=== PATIENT | male | born 1965 | race Caucasian/White ===

== ENCOUNTER 2017-09-27 11:54 | Day surgery (SDC) | payer BC ==
[2017-09-25 11:53] VITALS: BMI 21.2
[~2017-09-27 11:54] MED LIST: ALPRAZolam 0.25 MG TAB PO PRN; ALPRAZolam 0.5 MG TAB PO PRN; ASPIRIN 325 MG TAB PO STA; ATORVASTATIN 80 MG TAB PO STA; NITROGLYCERIN SL TABS 0.4 MG TAB SUBLINGUAL PRN; SODIUM CHLORIDE 0.9% 1,000 ML in EMPTY BAG 1 BAG IV ONE
[2017-09-27] MEDS ORDERED: fentaNYL (PF) 50 MCG/ML 2 ML AMP ONE (12:44)
[2017-09-27] MEDS ORDERED: LIDOCAINE 2% INJ 20 MG/ML (20 ML MDV) ONE (12:44)
[2017-09-27 12:45] LABS: Basophils # (A) 0.1 k/uL (0-0.2); Basophils % (A) 1 %; Eosinophils # (A) 0.2 k/uL (0-0.7); Eosinophils % (A) 3 %; HCT 46.2 % (39.0-53.0); HGB 15.8 gm/dL (13.0-17.5); Lymphocytes # (A) 1.9 k/uL (1.0-4.8); Lymphocytes % (A) 26 %; MCH 30.4 pg (25.0-35.0); MCHC 34.2 g/dL (31.0-37.0); MCV 88.8 fL (80.0-100.0); Mean Platelet Volume 7.3; Monocytes # (A) 0.4 k/uL (0-1.0); Monocytes % (A) 6 %; Neutrophils # (A) 4.4 k/uL (1.3-7.7); Neutrophils % (A) 63 %; Platelet Count 273 k/uL (150-450); RBC 5.21 m/uL (4.30-5.90); RDW 12.6 % (11.5-15.5)
[2017-09-27 12:56] LABS: Anion Gap 10 mmol/L; Blood Urea Nitrogen 15 mg/dL (9-20); Calcium 9.8 mg/dL (8.4-10.2); Carbon Dioxide 29 mmol/L (22-30); Chloride 101 mmol/L (98-107); Glucose 102 mg/dL (74-99); Potassium 4.4 mmol/L (3.5-5.1); Sodium 140 mmol/L (137-145)
[2017-09-27] MEDS ORDERED: VERAPAMIL 2.5 MG/ML 2 ML AMP ONE (13:05)
[2017-09-27] MEDS ORDERED: fentaNYL (PF) 50 MCG/ML 2 ML AMP IV ONE (13:14)
[2017-09-27] MEDS ORDERED: SODIUM CHLORIDE 0.9% 1,000 ML IV ONE (13:15)
[2017-09-27] MEDS ORDERED: LIDOCAINE 2% INJ 20 MG/ML SQ ONE (13:17)
[2017-09-27] MEDS: VERAPAMIL SYRINGE (5 MG/10 ML) INTRAARTER ONE ×2 (13:19→14:07)
[2017-09-27] MEDS ORDERED: NITROGLYCERIN 1000MCG/10ML SYRINGE INTRACORON ONE (13:26)
[2017-09-27] MEDS ORDERED: PRASUGREL 10 MG TAB ONE (13:37)
[2017-09-27] MEDS ORDERED: BIVALIRUDIN 250 MG in SODIUM CHLORIDE 0.9% 50 ML IV ONE (13:40)
[2017-09-27] MEDS ORDERED: BIVALIRUDIN BOLUS 250 MG/50 ML IV ONE (13:40)
[2017-09-27] MEDS ORDERED: IOPAMIDOL-370 125ML BTL INJ ONE (14:06)
[2017-09-27] MEDS ORDERED: ZOLPIDEM 5 MG TAB PO PRN (14:17)
[2017-09-27] MEDS ORDERED: RX INFO: IV CONTRAST WAS GIVEN 1 EACH MISC MISCELLANE PRN (14:17)
[2017-09-27] MEDS ORDERED: MAG HYDROX/AL HYDROX/SIMETH 30 ML CUP PO PRN (14:17)
[2017-09-27] MEDS ORDERED: ATROPINE SULFATE 0.1 MG/ML 10ML SYRINGE IV PRN (14:17)
[2017-09-27] MEDS ORDERED: NITROGLYCERIN SL TABS 0.4 MG TAB SUBLINGUAL PRN ×2 (14:17→14:18)
[2017-09-27] MEDS ORDERED: FAMOTIDINE 20 MG TAB PO PRN (14:18)
[2017-09-27] MEDS ORDERED: SODIUM CHLORIDE 0.9% 1,000 ML IV SCH (14:30)
[2017-09-27 16:24] VITALS: RESP 16
--- NOTE | 2017-09-27 17:09 | PTCA ---
PERCUTANEOUSTRANS CORORONARY ANGIOGRAPHY Mr. Boucher is a 52-year-old male with known history of coronary artery disease, who presented with symptoms of angina pectoris, underwent cardiac catheterization, was found to have critical stenosis involving the mid right coronary artery. In view of that, recommendation was made regarding angioplasty and stenting. The procedures as well as risks and complications were discussed with the patient who is in full understanding and agreement. PROCEDURE: A 6-H[place]er FR 3 and half guiding catheter was introduced into the system. After cannulating the right coronary ostium, a 0.014 balanced medium weight J-wire was advanced across the lesion and positioned distally. Then a 2.5 x 12 mm Trek balloon was advanced and 2 inflations maximum of 10 atmospheres were done. Following that, the balloon was removed and a 2.5 x 23 mm Xience Alpine stent was deployed in mid segment. It was dilated to 14 atmospheres. Following that, the balloon was removed and a 2.75 x 12 mm Xience Alpine stent was deployed proximally, postdilated at 14 atmospheres. After removing the balloon a 2.75 x 15 mm, NC Trek balloon was advanced into the mid stent and dilatation up to 14 atmospheres were done. After the last inflation, after appropriate wait, the balloon and the guidewire were withdrawn back in the guiding catheter. Images were obtained and repeated. Those images reveal stable successful stenting. At that point, the guiding catheter, the balloon and the guidewire were removed. The sheath was removed. Hemostasis was obtained with deployment of a TR band. There was no immediate complication. Patient is returned to his room in stable condition. Of note, the patient received Angiomax per protocol as well as oral loading dose of Effient. RESULTS: Successful stenting of the mid right coronary artery with reduction of stenosis from 99% to 0% and successful stenting of the proximal right coronary artery with reduction of stenosis from 70% to 0%. RECOMMENDATION: Patient will be continued on aspirin, Effient, beta ayala, RAINA inhibitor, statin. The importance of dual antiplatelet treatment were discussed with the patient and his family and are in full understanding and agreement. Duration of the procedure is 52 minutes. MMODL / IJN: [id number] /
--- NOTE | 2017-09-27 17:30 | CC ---
CARDIAC CATHETERIZATION REPORT Mr. Boucher is a 52-year-old male with known history of coronary artery disease, hypertension, hyperlipidemia, status post stenting of the LAD in 2015, who has been complaining of episodes of chest discomfort relieved with sublingual nitroglycerin of new onset. In view of that, recommendation was made regarding cardiac catheterization. The procedure, its risks and complications were discussed with the patient, who was in full understanding and agreement. PROCEDURE: Patient was brought to the irrigation laborer in a fasting, semi-sedated state after receiving fentanyl and Benadryl and achieving moderate conscious sedated state. He was draped and prepped in conventional fashion. Using Xylocaine anesthesia and Seldinger technique, a 6-Angolan sheath was introduced in the right radial artery. Selective right and left angiography was performed using 5-Angolan 3-1/2 bend right and left Natalio catheters. Multiple views were taken of the arteries, including hemiaxial views that were obtained. Following that, a 5-Angolan tight pigtail catheter was introduced in the left ventricle and a 30-degree PEREA view of the left ventricle was obtained. Following that, the catheters were removed. The images were reviewed. FINDINGS: 1. LEFT MAIN: This is a short-sized vessel bifurcating into left circumflex and left anterior descending artery. The left main coronary artery has no evidence of high- grade stenosis. 2. LEFT ANTERIOR DESCENDING ARTERY: This is a large-sized vessel reaching toward the apex with a wrap around the apex segment giving rise to one diagonal branch. The proximal segment of the LAD is stented and it is patent. There is a plaque proximal to the stent of about 20% to 30%. There is no significant in-stent stenosis. In the mid and distal LAD there is diffuse intimal disease with an area of stenosis of 70% to 80%. The rest of the vessel has no high-grade stenosis. 3. LEFT CIRCUMFLEX: This is a nondominant vessel, large in caliber, giving rise to 2 obtuse marginal branches. The left circumflex has mild intimal disease of 20% to 30% without any evidence of high-grade stenosis. 4. RIGHT CORONARY ARTERY: This is a large dominant vessel bifurcating distally into PDA and posterolateral segment and branches. The proximal right coronary artery has a 70% plaque and the mid segment has 2 areas of stenosis up to 99% with post- stenotic dilatation. 5. LEFT VENTRICULOGRAM: Left ventriculogram was performed in 30-degree PEREA view and revealed normal left ventricular size and systolic function. Ejection fraction is 60%. There was no significant mitral regurgitation. HEMODYNAMICS: There was no gradient across the aortic valve. The left ventricular end-diastolic pressure is 12 mmHg. CONCLUSION: 1. Critical stenosis involving the mid right coronary artery as well as a significant stenosis in the proximal right coronary artery. 2. Patent stent in the proximal LAD with significant disease in the distal LAD and the mid LAD. At that time the vessel was small in caliber. 3. Mild disease in left circumflex. 4. Normal left ventricular size and systolic function. RECOMMENDATION: In view of findings and anatomy, I have recommended proceeding with angioplasty and stenting of the right coronary artery. The procedure, its risks and complications were discussed with the patient, who is in full understanding and agreement. MMITALO / BEKAN: [id number] /
[2017-09-27] MEDS: METOPROLOL TARTRATE 50 MG TAB PO SCH (21:01)
[2017-09-27] MEDS: ALPRAZolam 0.25 MG TAB PO SCH (23:57)
[2017-09-28 04:29] VITALS: TEMP 97.9
[2017-09-28 06:34] LABS: Anion Gap 8 mmol/L; Blood Urea Nitrogen 13 mg/dL (9-20); Calcium 9.3 mg/dL (8.4-10.2); Carbon Dioxide 27 mmol/L (22-30); Chloride 105 mmol/L (98-107); Glucose 90 mg/dL (74-99); Potassium 4.3 mmol/L (3.5-5.1); Sodium 140 mmol/L (137-145)
[2017-09-28] MEDS: ALPRAZolam 0.25 MG TAB PO SCH (08:15)
[2017-09-28] MEDS: METOPROLOL TARTRATE 50 MG TAB PO SCH (08:19)
[2017-09-28 08:22] VITALS: BP 139/105; PULSE 79
[2017-09-28] MEDS ORDERED: buPROPion SR 150 MG TABLET.ER PO SCH (09:00)
[2017-09-28] MEDS ORDERED: EZETIMIBE 10 MG TAB PO SCH (09:00)
[2017-09-28] MEDS ORDERED: LISINOPRIL 20 MG TAB PO SCH (09:00)
[2017-09-28] MEDS ORDERED: ISOSORBIDE MONONITRATE ER 30 MG TAB.ER.24H PO SCH (09:00)
[2017-09-28] MEDS ORDERED: ASPIRIN 81 MG PO SCH (09:00)
--- NOTE | 2017-09-28 09:01 | PN ---
PROGRESS NOTE Mr. Boucher is a 52-year-old male with known history of coronary artery disease who presented with symptoms of chest discomfort, underwent cardiac catheterization and was found to have significant obstructive disease involving the RCA, underwent stenting of that vessel. He has diffuse intimal disease in the mid distal right LAD and recommendations were made regarding medical therapy. He is doing well this morning. He denies any chest pain. He is ambulating without difficulty. His breathing has been stable. He denies any dizziness or palpitation. Continues on aspirin once a day, Zetia 10 mg daily, isosorbide mononitrate 30 mg daily, Zestril 5 mg daily, pravastatin 80 mg daily, metoprolol tartrate 50 mg twice a day. PHYSICAL EXAMINATION: Blood pressure 139/80 with a heart rate in the 60s. LUNGS: Clear. HEART: Regular rate and rhythm, S1, S2. No S3. No rub. ABDOMEN: Soft, nontender. EXTREMITIES: No edema. Right radial pulse is intact. EKG revealed no acute changes. LAB DATA: Revealed BUN and creatinine 13 and 0.9, potassium 4.3. IMPRESSION: 1. Status post stenting of the right coronary artery. 2. Left anterior descending artery disease diffuse disease. 3. Hypertension. 4. Hyperlipidemia. RECOMMENDATION: Patient will be discharged home today and followed as an outpatient. MMODL / IJN: [id number] / DECLAN
[2017-09-28] MEDS ORDERED: PRASUGREL 10 MG TAB PO SCH (14:18)
[2017-09-28] MEDS ORDERED: PRAVASTATIN SODIUM 80 MG TAB PO SCH (21:00)
== END 2017-09-28 08:34 | disposition home or self-care (01) ==
LOC: CATHCVL 11:54 → 6SEL 14:08 → CATHCVL 09-28 08:34
PROVIDERS: ATTEND Internal Medicine Interventional Cardiology
DX: I25.110 Atherosclerotic heart disease of native coronary artery with unstable angina pectoris (principal); I10 Essential (primary) hypertension; E78.2 Mixed hyperlipidemia; Z95.5 Presence of coronary angioplasty implant and graft; Z79.82 Long term (current) use of aspirin; Z79.51 Long term (current) use of inhaled steroids; Z79.899 Other long term (current) drug therapy
CPT/HCPCS: 93458; 85347; 80048 ×2; 85025; C9600; C1769 ×2; C1894; C1725 ×2; C1887; C1874; J2001; J3010; J0583; Q9967

== ENCOUNTER → 2021-05-19 | Outpatient (CLI) | payer BC ==
--- NOTE | 2021-05-20 08:46 | US ---
EXAMINATION TYPE: US thyroid st tissue head/neck DATE OF EXAM: 05/19/2021 COMPARISON: NONE CLINICAL HISTORY: E04.1 Thyroid nodule. No abnormal labs. Patient states he has a midline anterior n [place] hard palpable. GLAND SIZE: Right Lobe: 5.1 x 1.6 x 1.5 cm Overall Parenchyma: homogenous Left Lobe: 4.4 x 1.4 x 1.6 cm Overall Parenchyma: homogeneous Isthmus Thickness: 0.2 cm NODULES RIGHT: # of nodules measured on right: 0 LEFT: # of nodules measured on left: 0 Upper pole calcification visualized = 0.2 x 0.2 cm ISTHMUS: # of nodules measured in the isthmus: 0 Bilateral neck scanned, no evidence of lymphadenopathy. Area of palpable scanned which appears to be inferior to isthmus. Echogenic area with shdaowing= 0.7 x 0.8 cm IMPRESSION: 1. Homogenous appearing thyroid. 2. Anteriorly isthmus is echogenic area correlating with the palpable abnormality. The findings are n onspecific. Consider soft tissue CT neck for additional evaluation.
== END | disposition home or self-care (01) ==
LOC: RADUSWWP 16:40
PROVIDERS: ATTEND Family Medicine
DX: E07.89 Other specified disorders of thyroid (principal)
CPT/HCPCS: 76536